=== PATIENT | female | born 1955 | race Caucasian/White ===

== ENCOUNTER 2022-11-29 07:23 | Emergency (ER) | payer OTHER, SELFPAY ==
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
[2022-11-29 07:32] VITALS: BP 126/55; RESP 18; TEMP 37; BMI 27.1
[2022-11-29 07:40] VITALS: PULSE 61; O2SAT 98
[2022-11-29 09:33] VITALS: BP 141/59; PULSE 54; RESP 18; O2SAT 98
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
== END 2022-11-29 10:11 | disposition home or self-care (01) ==
PROVIDERS: Emergency Provider Emergency Medicine; PCP Student in an Organized Health Care Education/Training Program
DX: R07.89 Other chest pain (principal); M62.838 Other muscle spasm
CPT/HCPCS: 71046; 99283; 99284

== ENCOUNTER 2024-11-09 09:06 | Emergency (ER) | payer OTHER, MEDICARE, SELFPAY ==
--- NOTE | ~2024-11-09 | CT_ITS ---
CLINICAL HISTORY: fall with head strike CT cervical spine without contrast Comparison: None Findings: Mild grade 1 listhesis noted at a few levels. No acute fracture. Degenerative spinal changes at some levels. Atherosclerotic calcifications. Questionable 10 mm left thyroid lobe nodule could be further evaluated with nonemergent ultrasound. Unremarkable lung apices. IMPRESSION: No acute fracture. Questionable 10 mm left thyroid lobe nodule could be further evaluated with nonemergent ultrasound. This document has been electronically signed by: Maggie Tapia MD on 11/09/2024 11:19:33
--- NOTE | ~2024-11-09 | CT_ITS ---
CLINICAL HISTORY: fall with head strike CT head without contrast Comparison: None Findings: Head and face CT scans would be reported concurrently. For the cervical spine findings please refer to the same-day cervical spine CT report. No intra-axial mass, midline shift, hydrocephalus, or acute hemorrhage. Mild age-related cerebral hemispheric white matter ischemic changes. Bilateral cataract surgery. Mild bilateral maxillary sinus mucosal thickening. Small left ethmoid sinus polyp/retention cyst. Left nasal ring. The orbits are unremarkable. No acute facial or skull fracture. Maintained bilateral TM joint alignment. IMPRESSION: 1. No acute intracranial findings. 2. No acute facial fracture. This document has been electronically signed by: Maggie Tapia MD on 11/09/2024 11:15:14
--- NOTE | ~2024-11-09 | CT_ITS ---
CLINICAL HISTORY: fall with facial ecchymosis CT maxillofacial without contrast Comparison: None Findings: Head and face CT scans would be reported concurrently. For the cervical spine findings please refer to the same-day cervical spine CT report. No intra-axial mass, midline shift, hydrocephalus, or acute hemorrhage. Mild age-related cerebral hemispheric white matter ischemic changes. Bilateral cataract surgery. Mild bilateral maxillary sinus mucosal thickening. Small left ethmoid sinus polyp/retention cyst. Left nasal ring. The orbits are unremarkable. No acute facial or skull fracture. Maintained bilateral TM joint alignment. IMPRESSION: 1. No acute intracranial findings. 2. No acute facial fracture. This document has been electronically signed by: Maggie Tapia MD on 11/09/2024 11:14:46
--- NOTE | ~2024-11-09 | XR_ITS ---
CLINICAL HISTORY: fall down 10 stairs 4 view left knee Comparison: None Findings: Bones intact. No dislocations. No joint effusion. No radiopaque foreign body. Mild medial tibiofemoral compartmental osteoarthritis. Small anterior superior patellar spur. Mild prepatellar soft tissue swelling. IMPRESSION: 1. No acute fracture This document has been electronically signed by: Maggie Tapia MD on 11/09/2024 11:30:56
[2024-11-09 09:13] VITALS: BP 126/76; PULSE 56; O2SAT 95
[2024-11-09 09:15] VITALS: BP 136/43; PULSE 62; RESP 18; TEMP 36.5; O2SAT 95; BMI 26.6
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
[2024-11-09] MEDS: Acetaminophen 325 MG TABLET 975 MG PO (10:45)
[2024-11-09 11:54] VITALS: BP 136/43; PULSE 62; RESP 18; TEMP 36.5; O2SAT 95
== END 2024-11-09 11:54 | disposition home or self-care (01) ==
PROVIDERS: Emergency Provider Emergency Medicine; PCP Student in an Organized Health Care Education/Training Program
DX: S00.11XA Contusion of right eyelid and periocular area, initial encounter (principal); S00.33XA Contusion of nose, initial encounter; W10.8XXA Fall (on) (from) other stairs and steps, initial encounter; M25.562 Pain in left knee; I10 Essential (primary) hypertension; Y93.9 Activity, unspecified; Y92.018 Other place in single-family (private) house as the place of occurrence of the external cause; Y99.9 Unspecified external cause status
CPT/HCPCS: 70450; 70486; 72125; 73562; 99284

== ENCOUNTER → 2024-11-09 09:10 | Outpatient (BNV) | payer OTHER, MEDICARE, SELFPAY | PROVIDERS: Emergency Provider Emergency Medicine; PCP Student in an Organized Health Care Education/Training Program; Visit Provider Radiology Diagnostic Radiology | DX: E04.1 Nontoxic single thyroid nodule (principal); J33.8 Other polyp of sinus; G44.309 Post-traumatic headache, unspecified, not intractable; M17.12 Unilateral primary osteoarthritis, left knee | CPT/HCPCS: 70450; 70486; 72125; 73562 ==

== ENCOUNTER 2025-01-30 10:05 | Outpatient (REF) | payer MEDICARE, OTHER, SELFPAY ==
--- NOTE | ~2025-01-30 | MR_ITS ---
CLINICAL HISTORY: CERVICALGIA MR cervical spine without gadolinium Comparison: CT/SR - CT CERVICAL SPINE WO IV CON - 11/09/24 09:15 EDT Findings: Normal vertebral body alignment. Mild multilevel spondylosis with degenerative disc desiccation, disc height loss, posterior disc osteophyte complex, uncovertebral joint hypertrophy and facet arthropathy causing mild multilevel spinal canal and neural foraminal narrowings. No acute fractures or pathologic bone lesions. Visualized intracranial contents are unremarkable. Soft tissues of the neck are normal. Cervical cord normal size and signal. IMPRESSION: No acute findings. Mild multilevel spondylosis of the cervical spine causing mild multilevel spinal canal and neural foraminal narrowings. This document has been electronically signed by: Daria Blunt MD on 02/01/2025 22:48:34
== END 2025-01-30 10:06 | disposition home or self-care (01) ==
LOC: HO.MRI 10:05
PROVIDERS: PCP Student in an Organized Health Care Education/Training Program; Visit Provider Student in an Organized Health Care Education/Training Program
DX: M54.2 Cervicalgia (principal)
CPT/HCPCS: 72141

== ENCOUNTER → 2025-01-30 10:16 | Outpatient (BNV) | payer MEDICARE, OTHER, SELFPAY | PROVIDERS: PCP Student in an Organized Health Care Education/Training Program; Visit Provider Student in an Organized Health Care Education/Training Program | DX: M54.2 Cervicalgia (principal) | CPT/HCPCS: 72141 ==